=== PATIENT | male | born 1960 | race Caucasian/White ===

== ENCOUNTER 2019-08-06 13:57 | Inpatient (IN) | payer MEDICARE, MEDICAID ==
[~2019-08-06] VITALS: Ht 152.4 cm; Wt 99.8 kg
--- NOTE | 2019-08-06 14:20 | NUR ---
OPENING ENVIRONMENTAL SERVICES ATTENDANT NOTES PATIENT BROUGHT BY GURNEY/ AMBULANCE FROM [place] . HE IS A/OX 4 , AMBULATORY. NO SOB OR DISCOMFORT NOTED AT THIS TIME. SKIN INTACT , PATIENT ON 2 L O2. PATIENT HAS A PATENT RIGHT AC IV LINE. BILATERAL LOWER EXTREMITY +1 NON PITTING OBSERVED. VITALS WNL ( SEE NURSING VITALS). BED AT THE LOWEST POSITION LOCKED, CALL LIGHT WITHIN REACH, WILL CONTINUE TO MONITOR PATIENT.
[2019-08-06] MEDS ORDERED: CARV3.122 PO (14:24)
[2019-08-06] MEDS ORDERED: CLOP75TA15 PO (14:24)
[2019-08-06] MEDS ORDERED: ATOR10TA PO (14:24)
[2019-08-06] MEDS ORDERED: SERT100T12 PO (14:24)
[2019-08-06] MEDS ORDERED: ASPI-1152 PO (14:24)
[2019-08-06] MEDS ORDERED: AMLO10TA7 PO (14:24)
[2019-08-06] MEDS ORDERED: FAMO20TA8 PO (14:24)
[2019-08-06] MEDS ORDERED: HYDR-3895 PO (14:24)
[2019-08-06 16:00] VITALS: BP 119/81
[2019-08-06] MEDS ORDERED: ACETAMINOPHEN 325 MG TABLET PO PRN (16:00)
[2019-08-06] MEDS ORDERED: Z GUARD REMEDY 2 OZ OINT TP PRN (16:00)
[2019-08-06] MEDS ORDERED: MAGNESIUM HYDROXIDE 30 ML UDC PO PRN (16:00)
[2019-08-06] MEDS ORDERED: MAG HYDROX/AL HYDROX/SIMETH 30 ML UDC PO PRN (16:00)
[2019-08-06] MEDS ORDERED: hydrOXYzine PAMOATE 25 MG CAPSULE PO PRN (16:00)
[2019-08-06] MEDS ORDERED: ONDANSETRON HCL/PF 4 MG/2 ML VIAL IVP PRN (16:00)
[2019-08-06] MEDS ORDERED: HYDROCODONE/APAP 5/325MG 1 EACH TABLET PO PRN (16:00)
[2019-08-06] MEDS: FUROSEMIDE 40 MG/4 ML VIAL IV SCH (17:21)
[2019-08-06] MEDS: CARVEDILOL 3.125 MG TABLET PO SCH (17:22)
[2019-08-06] MEDS: FAMOTIDINE (20 MG) 20 MG TABLET PO SCH (17:22)
--- NOTE | 2019-08-06 17:34 | NUR ---
CATERING CHEF NOTES EJECTION FRACTION IS 20 TO 25% DR ROLAND NOTIFIED.
--- NOTE | 2019-08-06 17:40 | NUR ---
INITIAL ECHO SHOWED EF 20-25%~. ADVISED RN OF PRELIMINARY RESULTS.
--- NOTE | 2019-08-06 19:15 | NUR ---
RADIO STATION ENGINEER NOTES (CLOSING) PATIENT IN BED A/OX4 AWAKE, AT BEDSIDE, NO SOB OR DISCOMFORT NOTED AT THIS TIME. ALL NEEDS ATTENDED, MEDICATIONS ADMINISTRATED. BED AT THE LOWEST POSITION LOCKED, CALL LIGHT WITHIN REACH. ENDORSED TO TERRITORY ACCOUNT EXECUTIVE NURSE FOR YOLIE.
[2019-08-06 20:00] VITALS: BP_SYST 134; BP_DIAS 83; BP_DIAS 85
--- NOTE | 2019-08-06 20:04 | NUR ---
CARDBOARD INSERTER OPENING NOTES: RECEIVED PT IN BED A7OX4 W/ AT BEDSIDE. ON 2L/MIN NC. A&OX4. ON TELE MONITOR SHOWING SR W/ PVC'S. PT DENIED PAIN. NO ACUTE DISTRESS NOTED AT THIS TIME. SAFETY MEASURES IN PLACE, CALL LIGHT WITHIN REACH. WILL CONTINUE TO MONITOR.
[2019-08-07] VITALS: BP 103/71
[2019-08-07 04:00] VITALS: BP 139/82
[2019-08-07 06:24] LABS: BASOPHILS # (AUTO) 0.1 /CMM (0.0-0.2); BASOPHILS % (AUTO) 1.2 % (0.0-2.0); EOSINOPHILS % (AUTO) 5.5 % (0.0-6.0); HEMATOCRIT 40 % (39-51); HEMOGLOBIN 12.9 g/dL (13.5-17.5); LYMPHOCYTES # (AUTO) 1.5 /CMM (0.8-4.8); MEAN CORPUSCULAR HGB CONC 32 g/dl (31.0-36.0); MEAN CORPUSCULAR VOLUME 89 fL (80-96); MONOCYTES # (AUTO) 0.5 /CMM (0.1-1.30); MONOCYTES % (AUTO) 6.7 % (2.0-12.0); NEUTROPHILS # (AUTO) 5.1 /CMM (1.8-8.9); NEUTROPHILS % (AUTO) 66.6 % (43.0-81.0); PLATELET COUNT (AUTO) 156 /CMM (150-450); RED BLOOD CELL COUNT(AUTO) 4.51 MIL/uL (4.5-6.0); WHITE BLOOD COUNT (AUTO) 7.7 K/uL (4.3-11.0)
[2019-08-07 06:34] LABS: CALCIUM, SERUM 8.7 mg/dL (8.5-10.1); CREATININE 1.2 mg/dL (0.6-1.3); MAGNESIUM 1.8 mg/dL (1.8-2.4); PHOSPHORUS 4.6 mg/dL (2.5-4.9); POTASSIUM 3.4 mmol/L (3.5-5.1)
--- NOTE | 2019-08-07 07:02 | NUR ---
MACHINE ADJUSTER LEADER CASE TRIM CLOSING NOTES: PT SLEEPING IN BED, NO SOB OR ACUTE DISTRESS NOTED. ON 2L/MIN NC O2, BREATHING EVEN AND UNLABORED. NO COMPLAINTS OF PAIN/DISCOMFORT. PT REMAINS A&OX4. ABLE TO MAKE NEEDS KNOWN. ON TELE MONITOR SHOWING SINUS LALO W/ PVC'S. HAS IV SITE ON RIGHT AC #20, FLUSHED, PATENT AND INTACT. BED IN LOWEST POSITION, LOCKED WITH SIDE RAILS X2 UP AND CALL LIGHT WITHIN REACH. WILL ENDORSE TO DAYSHIFT RN FOR YOLIE.
--- NOTE | 2019-08-07 07:10 | NUR ---
RN OPENING NOTES PT IS CURRENTLY SLEEPING. PT IS SB WITH PVC'S. BED IS LOCKED AND IN LOWEST POSITION WITH CALL LIGHT IN REACH. REPORT RECEIVED FROM CHANGE MANAGEMENT ANALYST RN. WILL CONTINUE TO MONITOR.
[2019-08-07 08:00] VITALS: BP 118/76
[2019-08-07] MEDS: SERTRALINE HCL 50 MG TABLET PO SCH (08:19)
[2019-08-07] MEDS: CLOPIDOGREL BISULFATE 75 MG TABLET PO SCH (08:19)
[2019-08-07] MEDS: FAMOTIDINE (20 MG) 20 MG TABLET PO SCH ×2 (08:20→16:38)
[2019-08-07] MEDS: FUROSEMIDE 40 MG/4 ML VIAL IV SCH ×4 (08:20→20:37)
[2019-08-07] MEDS: ASPIRIN EC 81 MG TABLET.DR PO SCH (08:20)
[2019-08-07] MEDS: ATORVASTATIN 10 MG TABLET PO SCH (08:20)
[2019-08-07] MEDS: AMLODIPINE BESYLATE 10 MG TABLET PO SCH (08:21)
[2019-08-07] MEDS: CARVEDILOL 3.125 MG TABLET PO SCH ×2 (08:21→16:39)
[2019-08-07] MEDS ORDERED: POTASSIUM CHLORIDE 20 MEQ TAB.PRT.SR PO ONE (08:30)
[2019-08-07] MEDS: POTASSIUM CHLORIDE 20 MEQ TAB.PRT.SR PO SCH ×3 (11:00→12:08)
[2019-08-07 12:00] VITALS: BP 134/79
[2019-08-07] MEDS ORDERED: Magnesium 1GM/D5W 100ML PREMIX 100 ML IV ONE (12:00)
[2019-08-07 16:00] VITALS: BP 127/88
--- NOTE | 2019-08-07 19:11 | NUR ---
RN CLOSING NOTES PT DENIES PAIN OR SOB AT PRESENT MOMENT. PT IS ABLE TO MAKE NEEDS KNOWN. PT IS ON TELE MONITOR HR 78 SR WITH PVC'S. NO SIGNIFICANT CHANGES DURING SHIFT. REPORT GIVEN TO INVERFORM MACHINE OPERATOR RN FOR YOLIE.
--- NOTE | 2019-08-07 19:49 | NUR ---
RN OPENING NOTES: PT IS AWAKE SITTING UP IN BED W/ FAMILY IN ROOM A&OX4. ON TELE MONITORING SHOWING SR W/ PVC'S. NO SOB OR DISTRESS NOTED. DENIES PAIN. HAS IV SITE ON RIGHT AC #20, PATENT AND FLUSHED. BED IN LOWEST AND LOCKED POSITION. CALL LIGHT W/IN REACH. WILL CONTINUE TO MONITOR.
[2019-08-07 20:00] VITALS: BP 123/79
--- NOTE | 2019-08-07 21:03 | NUR ---
RN NOTES: PT HAS LAST DOSE OF LASIX IV. AM LABS SHOWED PT'S POTASSIUM LEVEL OF 3.4. RECEIVED 40 MEQ PO OF KDUR DURING DAY SHIFT. NO RECENT K LEVEL OF THIS AM. [employer] SAL[employer] COORDINATOR MADE AWARE AND SAID TO ADMIN LAST DOSE OF LASIX. MED ADMINISTERED. WILL CONTINUE TO MONITOR.
[2019-08-08] VITALS: BP 134/89
[2019-08-08 04:00] VITALS: BP 132/86
[2019-08-08 06:39] LABS: BASOPHILS # (AUTO) 0.1 /CMM (0.0-0.2); BASOPHILS % (AUTO) 1.1 % (0.0-2.0); EOSINOPHILS % (AUTO) 4.6 % (0.0-6.0); HEMATOCRIT 44 % (39-51); HEMOGLOBIN 14.1 g/dL (13.5-17.5); LYMPHOCYTES # (AUTO) 2.1 /CMM (0.8-4.8); LYMPHOCYTES % (AUTO) 26.7 % (20.0-44.0); MEAN CORPUSCULAR HGB CONC 32 g/dl (31.0-36.0); MEAN CORPUSCULAR VOLUME 89 fL (80-96); MONOCYTES # (AUTO) 0.6 /CMM (0.1-1.30); MONOCYTES % (AUTO) 7.2 % (2.0-12.0); NEUTROPHILS # (AUTO) 4.7 /CMM (1.8-8.9); NEUTROPHILS % (AUTO) 60.4 % (43.0-81.0); PLATELET COUNT (AUTO) 105 /CMM (150-450); RED BLOOD CELL COUNT(AUTO) 4.95 MIL/uL (4.5-6.0); WHITE BLOOD COUNT (AUTO) 7.8 K/uL (4.3-11.0)
--- NOTE | 2019-08-08 07:05 | NUR ---
RN OPENING NOTES PT AWAKE IN BED. NO SOB OR DISTRESS NOTED. DENIES PAIN AT THIS TIME. ABLE TO MAKE NEEDS KNOWN. ON TELE MONITOR SHOWING SR WITH MULTIPLE PVC'S. NO SIGNIFICANT CHANGES REPORTED. BED IN LOWEST AND LOCKED POSITION W/ CALL LIGHT IN REACH. WILL CONTINUE TO MONITOR.
--- NOTE | 2019-08-08 07:07 | NUR ---
RN CLOSING NOTES: PT AWAKE IN BED. NO SOB OR DISTRESS NOTED. DENIES PAIN AT THIS TIME. ABLE TO MAKE NEEDS KNOWN. ON TELE MONITOR SHOWING SR W/ PVC'S. NO SIGNIFICANT CHANGES DURING SHIFT. BED IN LOWEST AND LOCKED POSITION W/ CALL LIGHT IN REACH. WILL ENDORSE TO MORNING SHIFT RN.
[2019-08-08 08:00] VITALS: BP 124/68
[2019-08-08] MEDS: FAMOTIDINE (20 MG) 20 MG TABLET PO SCH ×2 (09:27→17:38)
[2019-08-08] MEDS: ASPIRIN EC 81 MG TABLET.DR PO SCH (09:27)
[2019-08-08] MEDS: CLOPIDOGREL BISULFATE 75 MG TABLET PO SCH (09:27)
[2019-08-08] MEDS: SERTRALINE HCL 50 MG TABLET PO SCH (09:27)
[2019-08-08] MEDS: ATORVASTATIN 10 MG TABLET PO SCH (09:28)
[2019-08-08] MEDS: CARVEDILOL 3.125 MG TABLET PO SCH ×2 (09:29→17:39)
[2019-08-08] MEDS: AMLODIPINE BESYLATE 10 MG TABLET PO SCH (09:29)
[2019-08-08] MEDS ORDERED: FUROSEMIDE 40 MG TABLET PO SCH (10:00)
[2019-08-08] MEDS ORDERED: POTASSIUM CHLORIDE 20 MEQ TAB.PRT.SR PO SCH (10:00)
[2019-08-08 10:07] LABS: ALBUMIN 3.5 g/dL (3.4-5.0); CALCIUM, SERUM 8.6 mg/dL (8.5-10.1); CREATININE 1.3 mg/dL (0.6-1.3); MAGNESIUM 1.9 mg/dL (1.8-2.4); PHOSPHORUS 3.1 mg/dL (2.5-4.9); POTASSIUM 3.4 mmol/L (3.5-5.1); TOTAL PROTEIN, SERUM 7.3 g/dL (6.4-8.2)
[2019-08-08] MEDS ORDERED: FURO40TA5 PO (10:26)
[2019-08-08 12:00] VITALS: BP 119/71
[2019-08-08 16:00] VITALS: BP 133/71
--- NOTE | 2019-08-08 19:38 | NUR ---
RN CLOSING NOTES [facility] BE HERE IN 45 MINS. DISCHARGE PAPERWORK WAITING FOR PT WHO WILL BE GOING HOME. REPORT GIVEN TO REHAB THERAPIST RN FOR YOLIE.
[2019-08-08 20:00] VITALS: BP 136/81
--- NOTE | 2019-08-08 20:36 | NUR ---
tele/rn notesDISCHARGE TO HOME FAMILY AT BEDSIDE FOR PATIENT WITH DISCHARGE INSTRUCTION TO HOME WITH LIFE VEST INSTRUCTIONS ABLE TO PROVIDE EXPLANATION AND UNDERSTANDING, OBSERVE ABLE TO DO AND COMPREHEND WITH INSTRUCTIONS PROVIDED. VITAL SIGNS CHECK IV SITE REMOVED, ID BRACELET REMOVED, DISCHARGE INSTRUCTION PROVIDED,. BELONGINGS CHECK RECEIVED. DISCUSSED MEDICATION COMPLIANCE AND FOLLOW UP VISIT WITH PCP. ABLE TO UNDERSTAND.
--- NOTE | 2019-08-08 20:50 | NUR ---
PATIENT WAS PICKED UP BY FAMILY DISCHARGE TO HOME VIA PRIVATE AUTO, ABLE TO AMBULATE AND REFUSED WHEELCHAIR. WALKED SAFELY WITH FAMILY.LIFE VEST PLACED/.
== END 2019-08-08 20:50 | disposition home or self-care (01) | DRG 293 ==
LOC: TELE1 13:57
PROVIDERS: ADMIT Internal Medicine; ATTEND Internal Medicine
DX: I11.0 Hypertensive heart disease with heart failure (principal); I50.23 Acute on chronic systolic (congestive) heart failure; I25.10 Atherosclerotic heart disease of native coronary artery without angina pectoris; E78.5 Hyperlipidemia, unspecified; E66.9 Obesity, unspecified; K21.9 Gastro-esophageal reflux disease without esophagitis; Z95.1 Presence of aortocoronary bypass graft; F32.9 Major depressive disorder, single episode, unspecified; E87.6 Hypokalemia; Z72.0 Tobacco use; Z82.49 Family history of ischemic heart disease and other diseases of the circulatory system; Z68.37 Body mass index [BMI] 37.0-37.9, adult; I42.9 Cardiomyopathy, unspecified; I25.5 Ischemic cardiomyopathy
CPT/HCPCS: 36415; 71045-TC; 80048-TC; 80053-TC; 80061-TC; 83735-TC; 83880; 84100-TC; 84484-TC; 85025-TC; 93307-TC; G0378; J1940; J3475; J7030